=== PATIENT | male | born 1960 | race Caucasian/White ===

== ENCOUNTER 2020-09-18 11:00 | Outpatient (CLI) | payer OTHER, SELFPAY ==
--- NOTE | ~2020-09-18 | DEXA_ITS ---
Bone Density Report Name: Waylon Sparks Age: 60 Sex: Male Ethnicity: White Date of : 1960 Indication: Bone Loss Referring Provider: Juvencio, Katelin Bunch Study: Bone densitometry was performed. Exam Date: September 18, 2020 Accession number: [id number] Bone Density: Region BMD T-score Z-score Classification AP Spine(L1-L4) 0.860 -2.1 -1.4 Osteopenia Femoral Neck (Left) 0.763 -1.2 -0.3 Osteopenia Total Hip (Left) 0.952 -0.5 -0.1 Normal Femoral Neck (Right) 0.717 -1.6 -0.6 Osteopenia Total Hip (Right) 0.943 -0.6 -0.1 Normal Femoral Neck Mean 0.740 -1.4 -0.4 Osteopenia Total Hip Mean 0.948 -0.6 -0.1 Normal World Health Organization criteria for BMD impression classify patients as: Normal (T-score at or above -1.0), Osteopenia (T-score between -1.0 and -2.5), or Osteoporosis (T-score at or below -2.5). Clinical Information Provided by Patient: Patient maximum height was 72 Drinks caffeinated beverages Impression: The patient has low bone mass, based on the Total Spine T-score. Discussion: BONE DENSITY IS LOW AT ONE OR MORE SKELETAL SITES. This patient's lowest T-score is low at one or more skeletal sites. It meets the World Health Organization's (WHO) criteria for ?low bone mass? (T-score between -1.0 and -2.5). The patient's 10-year risk of fracture as calculated by FRAX is less than the threshold where pharmacological therapy is recommended by the National Osteoporosis Foundation (NOF). However, all treatment decisions require clinical judgment and consideration of individual patient factors, including patient preferences, comorbidities, previous drug use, risk factors not captured in the FRAX model (e.g., frailty, falls, vitamin D deficiency, increased bone turnover, interval significant decline in bone density) and possible under or overestimation of fracture risk by FRAX. The patient should follow a healthful lifestyle (good nutrition with adequate calcium and vitamin D, and appropriate weight-bearing exercise). Follow-Up: Consider repeating this study in 2 to 3 years to reassess this patient's status, or sooner if there is some new clinical indication. Reported by: Dr. Richar Chery on 09/18/2020 11:36:00 AM. Reviewed, dictated and finalized at location A. [facility]ITAL[facility]ensen
== END 2020-09-18 11:01 | disposition home or self-care (01) ==
LOC: CHSIMG 11:03
PROVIDERS: PCP Family Medicine; Visit Provider Nurse Practitioner
DX: M89.8X9 Other specified disorders of bone, unspecified site (principal)
CPT/HCPCS: 77080